=== PATIENT | female | born 1945 | race Caucasian/White ===

== ENCOUNTER 2018-02-18 07:44 | Inpatient (IN) | payer MEDICARE, MEDICAID ==
[~2018-02-18] VITALS: Ht 167.6 cm; Wt 61.2 kg
[2018-02-18] MEDS ORDERED: LOPHC2 MT (07:48)
[2018-02-18] MEDS ORDERED: OMEP20TA15 PO (07:48)
[2018-02-18] MEDS ORDERED: SODIUM CHLORIDE 0.9% 1,000 ML IV ONE (08:01)
[2018-02-18 09:14] LABS: BASOPHILS % 0.6 % (0.0-2.0); EOSINOPHILS % 1.6 % (0.0-5.0); HEMATOCRIT. 39.2 % (36.0-48.0); HEMOGLOBIN. 13.6 g/dL (12.0-16.0); MEAN CORPUSCULAR HEMOGLOBIN 29.5 pg (28.0-32.0); MEAN CORPUSCULAR VOLUME 84.6 fL (81.0-99.0); MEAN PLATELET VOLUME 8.2 fl (7.4-10.4); MONOCYTES % 9.1 % (2.0-8.0); NEUTROPHILS % 46.7 % (40.0-76.0); PLATELET 196 x1000/uL (130-400); RED BLOOD CELL COUNT 4.63 mill/uL (4.2-5.4); RED CELL DISTRIBUTION WIDTH 13.7 % (11.6-14.6)
[2018-02-18 09:22] LABS: CHLORIDE 101 mEq/L (98-107); D-DIMER 0.19 mg/L FEU (<0.50); PROTHROMBIN TIME 10.1 sec (9.1-11.1)
[2018-02-18 09:47] LABS: CLARITY URINE CLEAR (CLEAR); COLOR URINE YELLOW (YELLOW); KETONES URINE NEGATIVE (NEGATIVE); LEUKOCYTE ESTERASE URINE NEGATIVE (NEGATIVE); NITRITE URINE NEGATIVE (NEGATIVE); OCCULT BLOOD URINE NEGATIVE (NEGATIVE); PROTEIN URINE NEGATIVE (NEGATIVE); SPECIFIC GRAVITY URINE 1.011 (1.005-1.030); UROBILINOGEN URINE 0.2 E.U./dL (0.2-1.0)
[2018-02-18 14:00] VITALS: BP 143/67
[2018-02-18] MEDS ORDERED: IPRATROPIUM/ALBUTEROL 0.5-3(2.5)MG/3ML NEB INH PRN (14:30)
[2018-02-18] MEDS ORDERED: ACETAMINOPHEN 650MG/20.3ML UDC GT PRN (14:30)
[2018-02-18] MEDS ORDERED: GUAIFENESIN 200MG/10ML SUGAR FREE UDC PO PRN (14:30)
[2018-02-18] MEDS ORDERED: ACETAMINOPHEN 650MG SUPP PR PRN (14:30)
[2018-02-18] MEDS ORDERED: ACETAMINOPHEN 325MG TABLET PO PRN (14:30)
[2018-02-18] MEDS ORDERED: ONDANSETRON HCL 4MG/2ML INJ IV PRN (14:30)
[2018-02-18] MEDS ORDERED: MAGNESIUM/ALUMINUM HYDROXIDE/SIMETHICONE 30ML UDC PO PRN (14:30)
[2018-02-18] MEDS ORDERED: CLONIDINE 0.1MG TABLET PO PRN (14:30)
[2018-02-18] MEDS ORDERED: DOCUSATE SODIUM 100MG CAPSULE PO PRN (14:30)
[2018-02-18] MEDS ORDERED: NA PHOS,M-B/NA PHOS,DI-BA ENEMA 118ML PR PRN (14:30)
[2018-02-18] MEDS ORDERED: HYDROCODONE/ACETAMINOPHEN 5/325MG TABLET PO PRN (14:30)
[2018-02-18] MEDS ORDERED: LACTULOSE 20G/30ML UDC PO NR (14:45)
[2018-02-18] MEDS ORDERED: MAGNESIUM CITRATE 300ML SOLUTION PO NR (14:45)
[2018-02-18] MEDS ORDERED: BISACODYL 5MG TABLET PO PRN (14:45)
[2018-02-18] MEDS ORDERED: POTASSIUM CHLORIDE 20MEQ TABLET SR PO NR (17:00)
[2018-02-18] MEDS: SODIUM CHLORIDE 0.45% 1,000 ML IV SCH (17:31)
[2018-02-18] MEDS: FAMOTIDINE 20MG/2ML VIAL IV SCH (17:32)
[2018-02-18] MEDS: METOCLOPRAMIDE HCL 10MG/2ML VIAL IV SCH (18:02)
[2018-02-18] MEDS ORDERED: ERGO400C PO (19:22)
[2018-02-18 20:00] VITALS: BP 142/67
[2018-02-18] MEDS: SODIUM CHLORIDE 0.9% INJ 3ML FLUSH IVF SCH (22:26)
[2018-02-19] VITALS: BP 98/51
[2018-02-19] MEDS: METOCLOPRAMIDE HCL 10MG/2ML VIAL IV SCH ×3 (00:11→12:56)
[2018-02-19 04:00] VITALS: BP 107/52
[2018-02-19] MEDS: SODIUM CHLORIDE 0.9% INJ 3ML FLUSH IVF SCH ×2 (06:16→14:00)
[2018-02-19] MEDS: SODIUM CHLORIDE 0.45% 1,000 ML IV SCH (06:46)
[2018-02-19 07:11] LABS: BASOPHILS % 0.9 % (0.0-2.0); EOSINOPHILS % 1.6 % (0.0-5.0); HEMATOCRIT. 37.4 % (36.0-48.0); HEMOGLOBIN. 12.8 g/dL (12.0-16.0); LYMPHOCYTES % 44.7 % (20.0-50.0); MEAN CORPUSCULAR HEMOGLOBIN 29.1 pg (28.0-32.0); MEAN CORPUSCULAR VOLUME 84.9 fL (81.0-99.0); MEAN PLATELET VOLUME 7.7 fl (7.4-10.4); MONOCYTES % 9.1 % (2.0-8.0); NEUTROPHILS % 43.7 % (40.0-76.0); PLATELET 194 x1000/uL (130-400); RED CELL DISTRIBUTION WIDTH 13.3 % (11.6-14.6)
[2018-02-19 08:00] VITALS: BP_SYST 107; BP_SYST 112; BP_SYST 125; BP_DIAS 56; BP_DIAS 67
[2018-02-19 08:14] LABS: CHLORIDE 105 mEq/L (98-107)
[2018-02-19 08:25] LABS: CREATINE KINASE 28 IU/L (26-192); CREATINE KINASE MB FRACTION < 1.0 ng/mL (0.5-3.6); HDL CHOLESTEROL 60 mg/dL (40-59); LDL CHOLESTEROL 90 mg/dL (5-100)
[2018-02-19] MEDS: FAMOTIDINE 20MG/2ML VIAL IV SCH (08:40)
[2018-02-19 12:00] VITALS: BP 116/65
[2018-02-19 16:13] VITALS: BP 131/65
[2018-02-19 16:16] VITALS: BP 131/96
== END 2018-02-19 17:20 | disposition home or self-care (01) | DRG 241 ==
LOC: ER 08:03 → 5WST 11:04 → EDBEDREQ 11:09 → ENRESERV 13:15
PROVIDERS: ADMIT Family Medicine; ATTEND Family Medicine
DX: K29.70 Gastritis, unspecified, without bleeding (principal); E55.9 Vitamin D deficiency, unspecified; K21.9 Gastro-esophageal reflux disease without esophagitis; I10 Essential (primary) hypertension; K59.00 Constipation, unspecified; R55 Syncope and collapse; M81.0 Age-related osteoporosis without current pathological fracture; R07.9 Chest pain, unspecified; R00.2 Palpitations; Z79.899 Other long term (current) drug therapy
CPT/HCPCS: 36415; 71045; 74176; 80061; 82550; 82553; 82962; 83735; 83880; 84443; 84484; 85379; 93005; 93306; 96360; 96361; 99285; J2765; J3490; J7030

== ENCOUNTER 2023-02-13 02:11 | Emergency (ER) | payer MEDICARE, MEDICAID ==
[~2023-02-13] VITALS: Ht 167.6 cm; Wt 75.0 kg
[~2023-02-13 02:11] MED LIST: ERGO400C PO; OMEP20TA15 PO
[2023-02-13 02:20] VITALS: O2SAT 100
[2023-02-13] MEDS ORDERED: MAGNESIUM/ALUMINUM HYDROXIDE/SIMETHICONE 30ML UDC PO STA (02:24)
[2023-02-13] MEDS ORDERED: ONDANSETRON HCL 4MG/2ML INJ IV STA (02:24)
[2023-02-13 03:18] LABS: HEMATOCRIT. 35.3 % (36.0-48.0); HEMOGLOBIN. 12.1 g/dL (12.0-16.0); LYMPHOCYTES % 32.5 % (20.0-50.0); MEAN CORPUSCULAR HEMOGLOBIN 28.9 pg (28.0-32.0); MEAN CORPUSCULAR HGB CONC 34.3 g/dL (31.0-37.0); MEAN CORPUSCULAR VOLUME 84.1 fL (81.0-99.0); MEAN PLATELET VOLUME 7.5 fl (7.4-10.4); MONOCYTES % 8.6 % (2.0-8.0); NEUTROPHILS % 56.9 % (40.0-76.0); PLATELET 196 x1000/uL (130-400); RED CELL DISTRIBUTION WIDTH 13.1 % (11.6-14.6); WHITE BLOOD COUNT 4.7 x1000/uL (4.5-11.0)
[2023-02-13 03:26] LABS: CHLORIDE 109 mEq/L (98-107); INDEX HEMOLYSI 1 (1-3); INDEX ICTERIC 1 (1-4); INDEX LIPEMIC 1 (1-3); POTASSIUM 3.7 mEq/L (3.5-5.1); SODIUM 138 mEq/L (136-145)
[2023-02-13 03:29] LABS: PROTHROMBIN TIME 10.6 sec (9.6-11.0)
[2023-02-13 03:35] LABS: ALANINE AMINOTRANSFERASE 14 IU/L (13-61); ALBUMIN 3.4 g/dL (3.4-5.0); ASPARTATE AMINOTRANSFERASE 9 IU/L (15-37); BILIRUBIN TOTAL 0.4 mg/dL (0.1-1.0); CALCIUM 8.1 mg/dL (8.5-10.1); CARBON DIOXIDE 26 mEq/L (21-32); CREATININE 0.7 mg/dL (0.6-1.3); ETHANOL BLOOD < 10 mg/dL (<10); GLUCOSE 105 mg/dL (70-105); PROTEIN TOTAL 6.3 g/dL (6.0-8.3); TROPONIN I HIGH SENSITIVITY 6 ng/L (<54); UREA NITROGEN BLOOD 18 mg/dL (7-21)
[2023-02-13] MEDS ORDERED: PANTOPRAZOLE SODIUM 40 MG/VIAL IV NR (04:15)
[2023-02-13] MEDS ORDERED: PROT40 MT (06:41)
[2023-02-13] MEDS ORDERED: T3 PO (06:41)
[2023-02-13] MEDS ORDERED: ONDA4TAB50 MT (06:41)
[2023-02-13] MEDS ORDERED: MAGNESIUM/ALUMINUM HYDROXIDE/SIMETHICONE 30ML UDC PO NR (06:45)
[2023-02-13] MEDS ORDERED: ONDANSETRON HCL 4MG/2ML INJ IV NR (06:45)
[2023-02-13 07:45] VITALS: BP 125/61; PULSE 80; RESP 16; TEMP 98.3
== END 2023-02-13 07:46 | disposition home or self-care (01) ==
LOC: ER 02:11
DX: R10.13 Epigastric pain (principal); I10 Essential (primary) hypertension; Z00.00 Encounter for general adult medical examination without abnormal findings
CPT/HCPCS: 80053; 80320; 83690; 85025; 85610; 84484; 36415; 93005; 99284; Z7610; G0480